=== PATIENT | female | born 1945 | race Caucasian/White ===

== ENCOUNTER 2020-02-01 11:42 | Outpatient (CLI) | payer MEDICARE, MEDICAID, SELFPAY ==
[2020-02-01 11:50] VITALS: BP 158/77; PULSE 87; RESP 18; TEMP 36.5; O2SAT 94; BMI 37.5
== END 2020-02-01 11:43 | disposition home or self-care (01) ==
LOC: GILAB 11:42
DX: C56.9 Malignant neoplasm of unspecified ovary (principal)
CPT/HCPCS: 96368; J1642

== ENCOUNTER → 2020-07-17 08:08 | Day surgery (SDC) | payer MEDICARE, MEDICAID, SELFPAY ==
[2020-07-17 08:52] VITALS: BP 154/73; PULSE 77; RESP 18; TEMP 36.3; O2SAT 94
== END ==
PROVIDERS: PCP Internal Medicine; Visit Provider Pediatrics
DX: C56.9 Malignant neoplasm of unspecified ovary (principal)
CPT/HCPCS: 96368; 96523

== ENCOUNTER → 2020-09-17 13:39 | Day surgery (SDC) | payer MEDICARE, MEDICAID, SELFPAY ==
[2020-09-17 14:04] VITALS: BP 159/84; PULSE 86; RESP 18; TEMP 36.7; O2SAT 94
== END ==
PROVIDERS: PCP Internal Medicine; Visit Provider Pediatrics
DX: C56.9 Malignant neoplasm of unspecified ovary (principal)
CPT/HCPCS: 96368; 96523

== ENCOUNTER → 2020-12-27 12:38 | Day surgery (SDC) | payer MEDICARE, MEDICAID, SELFPAY ==
[2020-12-27 12:55] VITALS: BP 177/91; PULSE 80; RESP 18; TEMP 36.4; O2SAT 96
== END ==
PROVIDERS: PCP Internal Medicine; Visit Provider Pediatrics
DX: C56.9 Malignant neoplasm of unspecified ovary (principal)
CPT/HCPCS: 96368; 96523

== ENCOUNTER → 2021-03-27 09:41 | Day surgery (SDC) | payer MEDICARE, MEDICAID, SELFPAY ==
[2021-03-27 09:55] VITALS: BP 142/73; PULSE 92; RESP 18; TEMP 36.7; O2SAT 95
== END ==
PROVIDERS: PCP Internal Medicine; Visit Provider Pediatrics
DX: C56.9 Malignant neoplasm of unspecified ovary (principal)
CPT/HCPCS: 96368; 96523

== ENCOUNTER → 2021-07-04 09:41 | Day surgery (SDC) | payer MEDICARE, MEDICAID, SELFPAY ==
[2021-07-04 10:06] VITALS: BP 138/68; PULSE 85; RESP 18; TEMP 36.7; O2SAT 95
== END ==
PROVIDERS: PCP Internal Medicine; Visit Provider Pediatrics
DX: C56.9 Malignant neoplasm of unspecified ovary (principal)
CPT/HCPCS: 96368; 96523

== ENCOUNTER → 2021-09-05 12:56 | Day surgery (SDC) | payer MEDICARE, MEDICAID, SELFPAY ==
[2021-09-05 13:10] VITALS: BP 162/78; PULSE 86; RESP 18; TEMP 36.5; O2SAT 96
== END ==
PROVIDERS: PCP Internal Medicine; Visit Provider Pediatrics
DX: C56.9 Malignant neoplasm of unspecified ovary (principal)
CPT/HCPCS: 96523

== ENCOUNTER → 2021-10-03 12:58 | Day surgery (SDC) | payer MEDICARE, MEDICAID, SELFPAY ==
[2021-10-03 13:23] VITALS: BP 167/95; PULSE 84; RESP 18; TEMP 35.7; O2SAT 96
== END ==
PROVIDERS: PCP Internal Medicine; Visit Provider Pediatrics
DX: Z45.2 Encounter for adjustment and management of vascular access device (principal); C56.9 Malignant neoplasm of unspecified ovary
CPT/HCPCS: 96523

== ENCOUNTER → 2021-11-13 10:38 | Day surgery (SDC) | payer MEDICARE, MEDICAID, SELFPAY ==
[2021-11-13 10:49] VITALS: BP 168/93; PULSE 89; RESP 18; TEMP 36.1; O2SAT 95
== END ==
PROVIDERS: PCP Internal Medicine; Visit Provider Pediatrics
DX: C56.9 Malignant neoplasm of unspecified ovary (principal)
CPT/HCPCS: 96523

== ENCOUNTER → 2021-12-25 10:47 | Day surgery (SDC) | payer MEDICARE, MEDICAID, SELFPAY ==
[2021-12-25 11:00] VITALS: BP 176/78; PULSE 100; RESP 18; TEMP 36.2; O2SAT 96
== END ==
PROVIDERS: PCP Internal Medicine; Visit Provider Pediatrics
DX: Z45.2 Encounter for adjustment and management of vascular access device (principal)
CPT/HCPCS: 96523

== ENCOUNTER → 2022-04-15 12:45 | Day surgery (SDC) | payer MEDICARE, MEDICAID, SELFPAY ==
[2022-04-15 12:50] VITALS: BP 152/78; PULSE 114; RESP 18; TEMP 36.3; O2SAT 92
== END ==
PROVIDERS: PCP Internal Medicine; Visit Provider Pediatrics
DX: Z45.2 Encounter for adjustment and management of vascular access device (principal); C56.9 Malignant neoplasm of unspecified ovary
CPT/HCPCS: 96523

== ENCOUNTER 2023-02-04 10:41 | Oncology outpatient (recurring) (ONCR) | payer MEDICARE, MEDICAID, SELFPAY ==
[2023-02-04 12:03] LABS: Basophils % 0.5 %; Eosinophils # 0.1 10^3/uL (0.0-0.8); Eosinophils % 1.5 %; Hematocrit 35.8 % (37.0-47.0); Hemoglobin 11.9 g/dL (11.5-15.3); Lymphocytes # 1.3 10^3/uL (0.8-4.8); Lymphocytes % 22.1 %; Mean Corpuscular HGB Conc 33.2 g/dL (30.0-36.0); Mean Corpuscular Hemoglobin 32.6 pg (28.0-34.0); Mean Corpuscular Volume 98.1 fl (81-99); Mean Platelet Volume 9.5 fL (7.4-10.4); Monocytes # 0.4 10^3/uL (0.2-0.9); Monocytes % 7.3 %; Neutrophils # 4.01 10^3/uL (1.8-7.7); Neutrophils % 68.1 %; Nucleated Red Blood Cells % 0 %; Platelet Count 216 10^3/cmm (130-400); Red Blood Count 3.65 10^6/uL (4.1-5.3); Red Cell Distribution Width 15.6 % (12.1-15.1); White Blood Count 5.9 10^3/uL (4.0-10.0)
[2023-02-04 12:29] LABS: Alanine Aminotransferase 6 U/L (0-33); Albumin Level 3.7 g/dL (3.5-5.2); Alkaline Phosphatase 43 U/L (35-105); Anion Gap 14.2 (5-19); Aspartate Amino Transferase 13 U/L (0-32); Blood Urea Nitrogen 14 mg/dL (8-23); Calcium 9.4 mg/dL (8.5-10.5); Carbon Dioxide 28 mmol/L (22-29); Chloride 101 mmol/L (98-107); Globulin 3.8 g/dL (1.3-4.6); Glucose 124 mg/dL (65-115); Magnesium 1.5 mg/dL (1.7-2.3); Osmolality Calculated 290 mOsm/kg (285-295); Phosphorus 3.2 mg/dL (2.5-4.5); Potassium 4.2 mmol/L (3.5-5.1); Sodium 139 mmol/L (136-145); Total Bilirubin 0.4 mg/dL (0.15-1.2); Total Protein 7.5 g/dL (6.6-8.7)
== END 2023-02-26 23:59 | disposition home or self-care (01) ==
LOC: ONCMED 10:43
PROVIDERS: PCP Nurse Practitioner; Visit Provider Obstetrics & Gynecology
DX: C56.9 Malignant neoplasm of unspecified ovary (principal)
CPT/HCPCS: 80053; 82248; 83735; 84100; 85025